=== PATIENT | male | born 1990 | race Caucasian/White ===

== ENCOUNTER 2017-10-12 20:44 | Emergency (ER) | payer BC, MEDICAID, OTHER ==
--- NOTE | 2017-10-12 21:43 | EDM.PDOC ---
ED HPI GENERAL MEDICAL PROBLEM - General Chief Complaint: Chest Pain Stated Complaint: CHEST PAIN Time Seen by Provider: 10/12/17 21:10 Source of Information: Reports: Patient History Limitations: Reports: No Limitations - History of Present Illness INITIAL COMMENTS - FREE TEXT/NARRATIVE: Renzo comes into [facility] ED with a 2 hr hx of vague chest pains, palpitations, numbness in the chest, face and hands. Sxs were preceded by outdoor activity searching for coins with a metal detector for about 2 hrs. His sxs emerged when he sat down at home. He is fit, works out in the gym lifting wts, consumes Creatine, Whey, and 600 mg of caffeine daily. He does not smoke. Sxs have improved since entering the ED. - Related Data Allergies Allergy/AdvReac Type Severity Reaction Status Date / Time No Known Allergies Allergy Verified 10/12/17 21:04 Home Meds: Home Meds NK [No Known Home Meds] 07/20/15 [History] Past Medical History - Past Health History Medical/Surgical History: Denies Medical/Surgical History Psychiatric History: Reports: Anxiety Social & Family History - Family History Family Medical History: Noncontributory - Tobacco Use Smoking Status *Q: Never Smoker Years of Tobacco use: 1 Packs/Tins Daily: 1 Second Hand Smoke Exposure: No - Caffeine Use Caffeine Use: Reports: Energy Drinks - Recreational Drug Use Recreational Drug Use: No ED ROS GENERAL - Review of Systems Review Of Systems: See Below Constitutional: Reports: No Symptoms HEENT: Reports: No Symptoms Respiratory: Reports: No Symptoms Cardiovascular: Reports: Chest Pain (atypical), Lightheadedness, Palpitations Endocrine: Reports: No Symptoms GI/Abdominal: Reports: No Symptoms : Reports: No Symptoms Musculoskeletal: Reports: No Symptoms Skin: Reports: No Symptoms Neurological: Reports: Tingling (face, hands, and chest) Psychiatric: Reports: Anxiety Hematologic/Lymphatic: Reports: No Symptoms Immunologic: Reports: No Symptoms ED EXAM, GENERAL - Physical Exam Exam: See Below Exam Limited By: No Limitations General Appearance: Alert, WD/WN, No Apparent Distress, Anxious Eye Exam: Bilateral Eye: EOMI, Normal Inspection, PERRL Ears: Normal External Exam Nose: Normal Inspection Throat/Mouth: Normal Inspection, Normal Oropharynx, Normal Voice, No Airway Compromise Head: Normocephalic Neck: Normal Inspection, Supple, Non-Tender, Full Range of Motion Respiratory/Chest: Lungs Clear, Normal Breath Sounds, Chest Non-Tender Cardiovascular: Normal Peripheral Pulses, Regular Rate, Rhythm, No Edema, No Gallop, No Murmur GI/Abdominal: Normal Bowel Sounds, Soft, Non-Tender Back Exam: Normal Inspection Extremities: Normal Inspection Neurological: Alert, Oriented, CN II-XII Intact, Normal Cognition, Normal Gait, No Motor/Sensory Deficits Psychiatric: Normal Affect, Anxious Skin Exam: Warm, Dry, Intact Lymphatic: No Adenopathy Course - Vital Signs Text/Narrative:: Following assessment at the [facility] ED, a 12 lead ekg was interpreted as normal for age. Subsequent CBC, Basic Met Panel, and Troponin I were also baseline. He was asx at time of discharge. No meds were administered. He was advised to stop the caffeine. Last Recorded V/S: Last Vital Signs Temp 37.1 C 10/12/17 20:44 Pulse 97 10/12/17 20:44 Resp 18 10/12/17 20:44 BP 155/79 H 10/12/17 20:44 Pulse Ox 99 10/12/17 20:44 - Orders/Labs/Meds Orders: Active Orders 24 hr Category Date Time Status EKG Documentation Completion [RC] ASDIRECTED Care 10/12/17 21:36 Active EKG 12 Lead [EK] Routine Ther 10/12/17 21:36 Ordered Labs: Laboratory Tests 10/12/17 10/12/17 10/12/17 Range/Units 21:05 21:05 21:05 WBC 10.2 (4.5-12.0) X10-3/uL RBC 5.25 (4.30-5.75) x10(6)uL Hgb 15.4 (11.5-15.5) g/dL Hct 44.9 (30.0-51.3) % MCV 85.6 (80-96) fL MCH 29.3 (27.7-33.6) pg MCHC 34.2 (32.2-35.4) g/dL RDW 12.3 (11.5-15.5) % Plt Count 308 (125-369) X10(3)uL MPV 9.1 (7.4-10.4) fL Neut % (Auto) 62.6 (46-82) % Lymph % (Auto) 22.9 (13-37) % Barren % (Auto) 6.3 (4-12) % Eos % (Auto) 8 H (1.0-5.0) % Baso % (Auto) 0 (0-2) % Neut # (Auto) 6.5 (1.6-8.3) # Lymph # (Auto) 2.3 (0.6-5.0) # Barren # (Auto) 0.6 (0.0-1.3) # Eos # (Auto) 0.8 (0.0-0.8) # Baso # (Auto) 0.0 (0.0-0.2) # Sodium 139 (135-145) mmol/L Potassium 3.5 (3.5-5.3) mmol/L Chloride 101 (100-110) mmol/L Carbon Dioxide 27 (21-32) mmol/L BUN 17 (7-18) mg/dL Creatinine 1.5 H (0.70-1.30) mg/dL Est Cr Clr Drug Dosing 77.73 mL/min Estimated GFR (MDRD) 57 L (>60) BUN/Creatinine Ratio 11.3 (9-20) Glucose 128 H (80-116) mg/dL Calcium 9.0 (8.6-10.2) mg/dL Troponin I < 0.017 L (<0.017-0.056) ng/mL Departure - Departure Time of Disposition: 22:26 Disposition: Home, Self-Care 01 Condition: Good Clinical Impression: Atypical chest pain Referrals: PCP,None [Primary Care Provider] - Forms: ED Department Discharge - Problem List & Annotations (1) Atypical chest pain SNOMED Code(s): 214717423 Code(s): R07.89 - OTHER CHEST PAIN Status: Acute Current Visit: Yes Annotation/Comment:: Atypical chest pain with sxs of hypocapnia, and a hx of caffeine usage. He was advised to stop the caffeine. - Problem List Review Problem List Initiated/Reviewed/Updated: Yes - My Orders Last 24 Hours: My Active Orders 10/12/17 21:36 EKG Documentation Completion [RC] ASDIRECTED EKG 12 Lead [EK] Routine - Assessment/Plan Last 24 Hours: My Active Orders 10/12/17 21:36 EKG Documentation Completion [RC] ASDIRECTED EKG 12 Lead [EK] Routine Plan: Follow up with PCP.
[2017-10-12 22:56] VITALS: BP 131/70
== END 2017-10-12 22:45 | disposition home or self-care (01) ==
LOC: FB.ED 20:44
DX: R07.89 Other chest pain (principal); R00.2 Palpitations
CPT/HCPCS: 36415; 80048; 84484; 85025; 93005; 99285